=== PATIENT | male | born 1975 | race Caucasian/White ===

== ENCOUNTER 2017-04-04 11:25 | Emergency (ER) | payer OTHER ==
[2017-04-04 12:20] LABS: BUN/CREATININE RATIO 7 (0-10)
[2017-04-04 12:39] LABS: RED BLOOD COUNT 5.1 M/UL (4.20-5.50); WHITE BLOOD COUNT 7.2 K/UL (4.5-11.0)
== END 2017-04-04 13:55 | disposition home or self-care (01) ==
LOC: ER1 11:25
PROVIDERS: Emergency Medicine
DX: S60.212A Contusion of left wrist, initial encounter (principal); M51.26 Other intervertebral disc displacement, lumbar region; E87.6 Hypokalemia; Y04.8XXA Assault by other bodily force, initial encounter
CPT/HCPCS: 36415; 70450; 70486; 72131; 73110; 73130; 80053; 81001; 85025; 96374; 96375; 96376; 99284; J2270; J2405; J7050; Q9962

== ENCOUNTER 2022-02-19 21:10 | Emergency (ER) | payer OTHER ==
[2022-02-19 21:47] LABS: RED BLOOD COUNT 4.86 M/UL (4.20-5.50); WHITE BLOOD COUNT 9.5 K/UL (4.5-11.0)
[2022-02-19 22:16] LABS: BUN/CREATININE RATIO 8 (0-10)
== END 2022-02-20 02:00 | disposition home or self-care (01) ==
LOC: ER1 21:10
PROVIDERS: Family Medicine
DX: R07.9 Chest pain, unspecified (principal); I10 Essential (primary) hypertension; E87.6 Hypokalemia; R51.9 Headache, unspecified; Z20.822 Contact with and (suspected) exposure to COVID-19; G89.29 Other chronic pain; M54.50 Low back pain, unspecified; F11.20 Opioid dependence, uncomplicated; Z88.6 Allergy status to analgesic agent
CPT/HCPCS: 70450; 71045; 80053; 82550; 82553; 84484; 85025; 93005; 96374; 96375; 99285; J0780; J1200; J2270; U0002